=== PATIENT | male | born 1960 | race Caucasian/White ===

== ENCOUNTER 2018-05-26 20:58 | Emergency (ER) | payer OTHER, BC ==
[2018-05-26] MEDS ORDERED: METHOCARBAMOL 750 MG TABLET PO ONE (21:53)
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
[2018-05-26 22:37] VITALS: BP 172/106
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
--- NOTE | 2018-05-26 22:47 | RADIOLOGY REPORT (SQ) ---
Chest two views HISTORY: Chest pain. FINDINGS: The heart is moderately enlarged. No consolidation or pleural effusion. No pulmonary edema or pneumothorax. IMPRESSION: No acute disease.
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
--- NOTE | 2018-05-26 22:48 | RADIOLOGY REPORT (SQ) ---
Lumbar spine five views including oblique views HISTORY: Low back pain. FINDINGS: Vertebral body heights are intact. Alignment is intact. No subluxation. Mild degenerative changes at L4-5 and L5-S1. IMPRESSION: No fracture.
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
== END 2018-05-27 00:54 | disposition home or self-care (01) ==
LOC: ER 20:58
DX: S29.012A Strain of muscle and tendon of back wall of thorax, initial encounter (principal); S16.1XXA Strain of muscle, fascia and tendon at neck level, initial encounter; S39.012A Strain of muscle, fascia and tendon of lower back, initial encounter; V43.52XA Car driver injured in collision with other type car in traffic accident, initial encounter
CPT/HCPCS: 99284; 71046; 72110; 72070; 72125; J3490